=== PATIENT | male | born 1995 | race Caucasian/White ===

== ENCOUNTER 2017-06-28 16:28 | Emergency (ER) | payer BC ==
[~2017-06-28] VITALS: Ht 165.1 cm; Wt 74.2 kg
[~2017-06-28 16:28] MED LIST: CNC36 PO; GROWTH HORMONE
[2017-06-28 16:37] VITALS: TEMP 36.5; Ht 165.1 cm; Wt 74.2 kg
[2017-06-28] MEDS ORDERED: FAMOTIDINE 20MG/102 ML D5W IV STA (16:42)
[2017-06-28] MEDS ORDERED: DiphenhydrAMINE HCL 50 MG/ML VIAL IV STA (16:42)
[2017-06-28] MEDS ORDERED: METHYLPREDNISOLONE 125 MG VIAL IV STA (16:42)
[2017-06-28] MEDS ORDERED: LORATADINE 10 MG TAB PO ONE (16:45)
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
[2017-06-28] MEDS ORDERED: LEVO25TA5 PO (16:57)
[2017-06-28] MEDS ORDERED: DOXY50CA26 PO (16:57)
[2017-06-28] MEDS ORDERED: PRED20TA PO (18:15)
[2017-06-28] MEDS ORDERED: EPINEPHRINE ADULT AUTO-INJECT 0.3 MG SYR IM STA (18:16)
[2017-06-28 18:41] VITALS: BP 102/56; PULSE 75; O2SAT 98
== END 2017-06-28 19:10 | disposition home or self-care (01) ==
LOC: C.EDB 16:29
DX: T63.461A Toxic effect of venom of wasps, accidental (unintentional), initial encounter (principal); Y92.89 Other specified places as the place of occurrence of the external cause; Y99.0 Civilian activity done for income or pay; Z91.030 Bee allergy status; Z79.899 Other long term (current) drug therapy